=== PATIENT | male | born 2000 | race African-American/Black ===

== ENCOUNTER 2024-11-20 05:21 | Observation (INO) | payer BC, SELFPAY ==
[2024-11-19 21:25] VITALS: BP 151/76
[2024-11-19 22:40] VITALS: BP 129/78
[2024-11-19 22:45] VITALS: BMI 20.3
--- NOTE | 2024-11-19 22:57 | ED.GENMED ---
History of Present Illness
General
Chief Complaint: Chest Pain
Source: patient and family (Father)
Exam Limitations: none
Time Seen by Provider: 11/19/24 22:44
Nursing documentation reviewed up to this point in time: agreed with
History of Present Illness
History of Present Illness:
24-year-old male with past medical history of GERD/IBS who presents to the ER for evaluation of chest pain/epigastric pain. Patient reports that symptoms started a few days ago and they have been constant although the intensity waxes and wanes. He
reports pain in the subxiphoid/epigastrium that radiates across the lower part of the chest. Describes the pain as sharp. He says the pain seems to be worse when he lays on his side and worse when he stands up straight. Somewhat better when he
lays recumbent. He says initially he thought his symptoms were due to GERD as he has had issues with his GI tract in the past but not responding to typical kcil-lat-okdybkn reflux medications and with persistent symptoms came to the ER for
assessment. He says he has some very mild shortness of breath. He denies any significant amount of coughing. He denies any recent fever, chills, URI symptoms. He has not had any nausea or vomiting or diarrhea. He denies any swelling or pain in
the legs. He denies any other complaints. No known personal or family history of cardiac issues.
Review of Systems
Review of Systems
All Other Systems: ROS reviewed and negative except as documented in HPI and ROS
Constitutional: Denies fever or chills
EENT: Denies sore throat or runny nose
Respiratory: Reports trouble breathing; Denies cough
Cardiac: Reports chest pain; Denies palpitations
ABD/GI: Reports abdominal pain; Denies nausea, vomiting or diarrhea
: Denies flank pain
Musculoskeletal: Denies neck pain or back pain
Neurological: Denies dizzy or headache
Phy Exam
Physical Exam
Physical Exam:
General: Awake, alert, oriented x3; no acute distress
Head: Normocephalic, atraumatic
Eyes: Conjunctiva normal, sclera anicteric
Throat: Airway intact, handling secretions
Neck: Trachea midline, supple without meningismus
Lungs: Clear to auscultation bilaterally, no wheezing, rales, rhonchi
Heart: Regular rate and rhythm, no murmurs, gallops, or rubs
Abd: Soft, non distended, minimally tender in the epigastric
Neuro: No gross deficits
Skin: no rash
Extremities: No edema in extremities, equal pulses in all extremities
Scores
Heart Failure Risk
Heart Failure Risk Score: Not Applicable
Heart Score for Chest Pain Patients
STEMI patient?: No
History: Slightly or Non-Suspicious
ECG: Normal
Age: </= 45 years
Risk Factors: No Risk Factors
Troponin: </= Normal Limit
Heart Score for Chest Pain Patients: 0
Heart Score Risk: 2.5% MACE over next 6 weeks
Withdrawal Assessment of Alcohol
Withdrawal Assessment Completed?: Not applicable
Course
Orders/Labs/Results
Orders:
Orders
11/19/24 21:18
EKG [Electrocardiogram (*1)] Stat
Reason for Study: Chest Pain
EKG- Treatment ONCE
11/19/24 22:47
CR Chest - 2 Views Urgent
Comment:
Reason For Exam: chest pain
11/19/24 22:56
Mag Hydrox/Al Hydrox/Simeth [Maalox] 30 ml Phenobarb/Hyoscy/Atropine/Scop [] 10 ml Viscous Lidocaine 2% [Xylocaine Viscous Cup] 10 ml PO NOW
Pantoprazole [Protonix IV] 40 mg IV NOW STA
11/19/24 23:01
Mag Hydrox/Al Hydrox/Simeth [Maalox] 30 ml .ROUTE .STK-MED ONE
Phenobarb/Hyoscy/Atropine/Scop [] 10 ml .ROUTE .STK-MED ONE
11/19/24 23:02
Viscous Lidocaine 2% [Xylocaine Viscous Cup] 15 ml .ROUTE .STK-MED ONE
11/19/24 23:09
Complete Blood Count/With Diff Urgent
Comprehensive Metabolic Panel Urgent
D-Dimer Urgent
Lipase Urgent
Troponin I Urgent
11/20/24 00:00
US Abdomen Complete/Upper Urgent
Reason For Exam: upper abd pain
11/20/24 02:15
CT Abd/pelvis W Iv Cont Urgent
Comment:
Reason For Exam: upper abd pain
Abnormal Lab Results
11/19/24
23:09
MCH 26.6 L pg
(27.0-31.0)
MCHC 31.9 L g/dL
(33.0-37.0)
Absolute Monos (auto) 1.2 H 10^3/uL
(0.1-0.6)
Monocytes % 14.3 H %
(1.7-9.3)
BUN 8 L mg/dl
(9-20)
AST 198 H U/L
(17-59)
ALT 304 H U/L
(0-50)
Alkaline Phosphatase 138 H U/L
(38-126)
11/19/24 23:09
11/19/24 23:09
Vital Signs
Initial and Last Documented VS:
Initial Vital Signs
Temp Pulse Resp BP Pulse Ox
37.2 C 92 18 151/76 100
11/19/24 21:25 11/19/24 21:25 11/19/24 21:25 11/19/24 21:25 11/19/24 21:25
Last Documented Vital Signs
Temp Pulse Resp BP Pulse Ox
37.2 C 79 18 112/58 100
11/19/24 21:25 11/19/24 23:30 11/19/24 23:30 11/20/24 02:00 11/20/24 02:15
MDM/Problems Addressed
Differential Diagnosis Includes:
Pericarditis, pneumothorax, pleurisy, pneumonia, GERD/esophagitis/PUD, cholelithiasis/cholecystitis, pancreatitis; very low clinical suspicion for ACS, PE, aortic dissection based on full clinical picture
MDM/Problems Addressed:
24-year-old male presents for evaluation of subxiphoid/epigastric pain for the past few days waxing waning intensity. He does have known history of GERD/gastritis had endoscopy in 2022. Hypertensive in triage normal on my assessment rest of vitals
normal. Physical exam as above. EKG shows no STEMI. Will check labs including a CBC and a CMP, troponin, lipase. Will check D-dimer. Will check chest x-ray. Check upper abdominal ultrasound. Treat with green grabber and Protonix. Reassess
after the above.
Labs reviewed: CBC unremarkable, CMP shows transaminitis normal T. bili. Normal lipase. His troponin is undetectable, D-dimer negative. Chest x-ray no acute disease. Upper abdominal ultrasound read by [facility] radiology no acute pathology.
Clinical reassessment patient still having pain and with abnormal LFTs we will follow-up with CT of the abdomen pelvis.
CT called back by radiology: Patient does have dilated bile duct although no gallstones noted; there is also question of enteritis. No other acute pathology noted. Given abnormal LFTs with dilated bile duct and continued pain we will plan to admit
for continued evaluation, consideration for MRCP. Case discussed with hospitalist.
*Radiology
Radiology exam reviewed: preliminary read by ED provider and radiology read reviewed
*Pulse Oximetry
Patient hypoxic: no
*EKG
Interpreted by ED Provider?: Yes
Heart Rate: 79
Rate: normal
Rhythm: sinus
[place]: normal axis
Interval: normal interval
QRS Pattern: normal QRS
Ischemia: no ischemia
*Critical Care Note
Total Time (30-74mins, 75-104mins- exclusive of procedures): Not Applicable
Data Reviewed
Source: patient and family
Patient Management
Discussion with other providers: Hospitalist (Discussed with hospitalist)
Escalation/DeEscalation of care consider admission/obs:
Admission indicated
ED Attending Note
-
Portions of this chart may have been created with voice recognition software.� Occasional wrong word or��sound alike� substitutions may have occurred due to the inherent limitations of voice recognition software.
Discharge Plan
Departure
Patient Disposition: Admit
Date of Disposition: 11/20/24
Time of Disposition: 04:00
Admit to doctor: Maria Isabel
Presentation/result/management discussed w/ accepting MD/DO: Hospitalist
Discharge Problem:
Epigastric pain, Abnormal LFTs
Referrals:
Scott Lanza MD [Family Provider] -
Interventions
Interventions:
*Risk Screen - Suicide Last Done: 11/19/24 21:25
*General Assessment Last Done: 11/19/24 21:25
*Neglect/Abuse Screening Last Done: 11/19/24 21:25
ED- Fall Risk Assessment Last Done: 11/19/24 22:48
*ED COVID-19 Vaccine History Last Done: 11/19/24 22:48
ED- Cardiac Assessment Last Done: 11/19/24 22:48
Discharge Date and Time
Print Language: MALAY
[2024-11-19 23:00] VITALS: BP 129/81
[2024-11-19] MEDS: MAALOX 50 PO (23:11)
[2024-11-19] MEDS: PROTONIX IV 40 MG IV (23:11)
[2024-11-19 23:25] LABS: % Basophils 0.4 % (0-2); % Eosinophils 0.8 % (0-6); % Immature Granulocytes 0.2 % (0-0.5); % Lymphocytes 22.8 % (20.5-51.1); % Monocytes 14.3 % (1.7-9.3); % Neutrophils 61.5 % (42.2-75.2); Absolute Eosinophils 0.1 10^3/uL (0-0.7); Absolute Lymphocytes 1.9 10^3/uL (1.2-3.4); Absolute Monocytes 1.2 10^3/uL (0.1-0.6); Absolute Neutrophils 5.1 10^3/uL (1.4-6.5); Hematocrit 45.4 % (39.0-52.0); Hemoglobin 14.5 g/dL (13.0-18.0); Mean Corp Hgb Conc. 31.9 g/dL (33.0-37.0); Mean Corpuscular Hgb 26.6 pg (27.0-31.0); Mean Corpuscular Volume 83.3 fL (80.0-94.0); Mean Platelet Volume 10.3 fL (7.4-10.4); Nucleated Red Blood Cells % 0.2 % (-); Platelet Count 283 10^3/uL (130-400); Red Blood Cell Count 5.45 10^6/uL (4.70-6.10); Red Cell Dist. Width 13.9 % (11.5-14.5); White Blood Cell Count 8.3 10^3/uL (4.8-10.8)
[2024-11-19 23:40] LABS: D-Dimer < 0.27 ug/mlFEU (0.00-0.50)
[2024-11-19 23:48] LABS: ALT (SGPT) 304 U/L (0-50); AST (SGOT) 198 U/L (17-59); Albumin 4.4 g/dl (3.5-5.0); Alkaline Phosphatase 138 U/L (38-126); Blood Urea Nitrogen 8 mg/dl (9-20); Calcium 9.5 mg/dl (8.4-10.2); Carbon Dioxide 28 mmol/L (22-30); Chloride 100 mmol/L (98-107); Estimated Creatinine Clearance > 125 ml/min; Glucose 85 mg/dl (70-99); Lipase 40 U/L (23-300); Potassium 4.8 mmol/L (3.5-5.1); Sodium 138 mmol/L (135-145); Total Bilirubin 0.6 mg/dl (0.2-1.3); Total Protein 7.7 g/dl (6.3-8.2); eGFR > 60.00
[2024-11-19 23:53] LABS: Troponin I < 0.012 ng/ml
[2024-11-20 00:46] VITALS: BP 129/69
[2024-11-20 02:00] VITALS: BP 112/58
[2024-11-20] MEDS: DILAUDID 0.5 MG IV (04:30)
[2024-11-20 04:37] LABS: Urine Albumin 2+ (Neg - Trace); Urine Bilirubin Negative (Negative); Urine Character Clear (Clear); Urine Color Yellow; Urine Glucose Negative (Negative); Urine Ketone 2+ (Negative); Urine Leukocyte Negative (Negative); Urine Nitrite Negative (Negative); Urine Occult Blood Negative (Negative); Urine Specific Gravity 1.015 (<1.030); Urine Urobilinogen Negative (Neg - 1+)
[2024-11-20 04:46] LABS: Urine Mucus Moderate
[2024-11-20 04:47] LABS: Urine Red Blood Cell 0-2 /HPF (0-2); Urine White Cell 0-2 /HPF (0-5)
--- NOTE | 2024-11-20 04:54 | HPS.HSE ---
Family Physician
-
Family Physician: Scott Lanza MD
Chief Complaint
-
Epigastric pain
History of Present Illness
This is a 24-year-old with no clear significant past medical history presenting to the emergency department with a 1 day history of epigastric pain.
Patient tells me that he has had history of abdominal pain since May of last year. At the time the diagnosis was unclear but he had extensive studies. He initially was diagnosed with E. coli and a parasite diarrhea and treated nitazoxanide for
3 days. He then had an EGD that ruled out a peptic ulcer and a colonoscopy that was inconclusive/negative for IBD. He was diagnosed with possible IBS. He too a course of medications (linaclotide?) and states that the symptoms resolved. He
reports having a bout of viral enteritis in september. He has otherwise been in normal health until 1 week ago when he had epigastric pain that he described as sharp/burning and radiating to his chest. This resolved. He now has one day history of
similar epigastric pain today without nausea, vomiting or diarrhea. Pain was when laying down. Denies any melena. Denies etoh use. Denies any medications including acetaminophen or nsaids. He reports occasional use of creatine supplement.
Denies dysuria. Denies fevers or chills. Family history of type I diabetes in father, IBS and h/o breast Ca in mother.
In the emergency department he was afebrile, blood pressure was 112/58 with a pulse of 82. ECG shows a normal sinus rhythm at 79 with negative troponin. CBC was completely unremarkable. Electrolytes BUN/creatinine were also all normal. LFTs
showed elevations in AST to 198, ALT to 300 and alk phos to 138. Lipase was normal. Right upper on ultrasound shows no gallstones or sonographic Becerra sign. The gallbladder and visualized biliary system are unremarkable. CTAP reported as having
dilated bile ducts but read is still pending at this time.
Medical History
Past Medical History
Past Medical History: Reports Other (IBS)
Past Surgical History: Reports None
Social History
Tobacco: Non-smoker
Alcohol: Occasional
Drug: None
Personal: Single
Living: With Family
Family History
Family History: Not pertinent
Allergies / Home Medications
Allergies reflects when Allergies were last updated in [facility].
Home Medications with original date entered in [facility]
Allergy/Medication List:
Allergies
Allergy/AdvReac Type Severity Reaction Status Date / Time
No Known Allergies Allergy Unverified 11/19/24 21:25
No Home Medications
Review of Systems
-
Constitutional: Reports No Symptoms
EENT: Reports No Symptoms
Respiratory: Reports No Symptoms
Abdomen/GI: Reports Abdominal Pain
: Reports No Symptoms
Musculoskeletal: Reports No Symptoms
Skin: Reports No Symptoms
Neurological: Reports No Symptoms
Endocrine: Reports No Symptoms
Hematologic/Lymphatic: Reports No Symptoms
Psych: Reports No Symptoms
Physical Exam
Vital Signs
Vital Signs
Temp Pulse Resp BP Pulse Ox
99.4 F 82 20 112/58 98
11/20/24 04:16 11/20/24 04:16 11/20/24 04:16 11/20/24 02:00 11/20/24 04:16
Physical Exam
General: Well Developed, Well Nourished and Pain
HEENT: NormoCephalic, Anicteric, Moist mucous membranes and Atraumatic
Respiratory: Clear
Cardiac: S1/S2 and Regular Rhythm
Breast: Deferred by me
GI: Soft, Non Distended, Normal Bowel Sounds and Tender
Rectal: Brown
Genito-urinary: No costovertebral tender
Musculoskeletal: No Clubbing, No Cyanosis and No Edema
Skin: Warm
Neuro: AO x 3 and No Motor Deficits
Hematologic/Lymphatic: No Lymphadenopathy
Psych: Calm
Laboratory Results
-
11/19/24 23:09
11/19/24 23:09
Laboratory Results
Total Bilirubin 0.6 mg/dl (0.2-1.3) 11/19/24 23:09
AST 198 U/L (17-59) H 11/19/24 23:09
ALT 304 U/L (0-50) H 11/19/24 23:09
Alkaline Phosphatase 138 U/L (38-126) H 11/19/24 23:09
Troponin I < 0.012 ng/ml 11/19/24 23:
Lipase 40 U/L (23-300) 11/19/24 23:09
Data Reviewed
-
CT Scan: Report Reviewed by me
Ultrasound: Report Reviewed by me
Medical Tests (Nuc Med, Echo, EKG etc): Image Personally Visualized and interpreted
Lab Data: Labs Reviewed by me
Old Records: Reviewed
Impression/Plan
-
IMPRESSION:
24 y.o with history of abdominal pain, diarrhea in the past presenting with epigastric pain radiating to the chest. LFTS elevated AST 198, ALT 300, AP 138. Lipase normal. No etoh use. No gall stones in GB. No acetaminophen use. Some dilated
bile ducts on CT (report pending).
PLAN:
Abdominal pain - Etiology on clear, with LFT abnormalities and report of biliary ductal dilation on CT suspect transient gall stones but cannot rule out other ductal obstruction. Possible acute viral hepatitis. Patient may also have some
gastritis/duodenitis but has no vomiting.
- admit to med surg
- trend lfts, check inflammatory panel
- check acute hepatitis panel
- mrcp in am
- clear liquid diet for now
- pain control and antiemetics
- GI consult
DVT PPX - SCDs
Code status - Full Code
--- NOTE | 2024-11-20 09:32 | W.PN.HOSP.TC ---
Addendum entered and electronically signed by Brandon Serrano MD 11/20/24 21:53:
Attending Addendum:
I saw and evaluated the patient. I reviewed the resident�s note and agree with findings and plan as documented in the resident�s note. Sub: abd pain resolved no diarrhea. no N/V jose miguel clears. Full 12 point ROS reviewed and negative except as
documented Exam: Vitals reviewed in chart GEN-NAD heart RRR lungs clear abd soft LE no edema
#GERD
-Continue 40 mg Protonix Once daily as OP
-No signs of Upper GI bleeding
#Abdominal pain due enteritis vs Aggravation of IBS
-Abd CT: Bowel: No significant gastric or small bowel distention. Mild prominence of several loops of small bowel-Mild enteritis?
-Abd US and MRI/MRCP: No evidence for choledocholithiasis or bile duct dilatation
-Unclear diagnosis of IBS in 2022
-Order Calprotectin to differentiate IBD and IBS
-Stool Culture was ordered+( Cryptosporidium and Giardia )
-check HIV-negative
#Transaminitis due infectious vs supplements or substances
-Hep panel- all neg except hep a ab
-resolving
-Urine tox positive for barbiturate
-DC to supplements were recommended
-Follow up AST, ALT as OP
-No evidence of choledocholithiasis on imaging
#Diarrhea
-resolved f/u as OP with GI
Time spent coordinating care, DC planning, review of DC plan of care with resident, transition of care, review of records, med rec/scripts sent electronically, consults, notes, d/w consultants, nursing, family, and CM�33 mins
Original Note:
Today's Communication/Plan
-
Hepatitis panel, urine drug screen, HIV
GI consult
Assessment / Plan
Assessment / Plan
24-year-old male with history of abdominal pain, diarrhea in the past presented with epigastric pain radiating to the chest.
# Abdominal/epigastric pain ; unclear etiology
# Transaminitis
#GERD
--AFVSS
--EKG unremarkable; tropes negative.
--D-dimer WNL
--BUN/creatinine, lipase WNL
--Abdominal ultrasound shows no gallstones or sonographic Becerra sign
--CXR negative
-- CT: IMPRESSION: 1. Mild prominence of several loops of small bowel, likely physiologic. Mild enteritis should be excluded clinically.
2. No evidence of intestinal obstruction, appendicitis, nephrolithiasis, hydronephrosis, cholecystitis, or abscess formation.
--Clear liquid diet for now
--Check acute hepatitis panel
--Check urine drug screen
--MRCP ordered in the ER : unremarkable and no evidence of choledocholithiasis or bile duct dilation.
--GI consult pending
--Check HIV
--Continue daily Pepcid 20 mg
--Tylenol as needed for pain
--Zofran as needed for nausea
Full code
Clear diet
Anticipated Discharge: Within 24 hours
Subjective/Interval History
-
Date of Service: November 20, 2024
Reports mild abdominal/epigastric pain. AFVSS
Objective Data
-
Labs:
Laboratory Results
11/19/24
23:09
WBC 8.3
Hgb 14.5
Hct 45.4
Plt Count 283
Sodium 138
Potassium 4.8
Chloride 100
Carbon Dioxide 28
BUN 8 L
Creatinine 0.8
Glucose 85
Calcium 9.5
Total Bilirubin 0.6
AST 198 H
ALT 304 H
Alkaline Phosphatase 138 H
Vital Signs:
Vital Signs
Temp Pulse Resp BP Pulse Ox
99.4 F 82 20 112/58 98
11/20/24 04:16 11/20/24 04:16 11/20/24 04:16 11/20/24 02:00 11/20/24 04:16
Review of Systems
-
History Source: Patient
Constitutional: Reports No Symptoms
Respiratory: Reports No Symptoms
Cardiac: Reports No Symptoms
Abdomen/GI: Reports Abdominal Pain (Mild epigastric pain); Denies Nausea or Vomiting
Genitourinary: Reports No Symptoms
Musculoskeletal: Reports No Symptoms
Neuro: Reports No Symptoms
Physical Exam
-
General: Well Developed, Well Nourished and No Apparent Distress
HEENT: Normocephalic and Atraumatic
Respiratory: Clear to Auscultation and Non Labored Respirations
Cardiac: Regular Rhythm and S1/S2
GI: Soft, Nontender, Nondistended and Normal Bowel Sounds
Musculoskeletal: No Clubbing, No Cyanosis and No Edema
Neuro: Awake, Alert and Oriented
Psych: Calm
Data Reviewed
-
CT Scan: Report Reviewed by me
Ultrasound: Report Reviewed by me
MRI: Report Reviewed by me
Labs: Labs Reviewed by me, Discussed with Physician and Discussed with Patient
--- NOTE | 2024-11-20 10:33 | CON.GI ---
Addendum entered and electronically signed by Mason Brar MD 11/20/24 16:57:
I personally performed a history and physical exam of the patient and discussed management with the resident. I reviewed the resident's note and agree with the documented findings and plan of care HPI/CC. 24-year-old male with chronic GI issues who
follows with Dr. Giang at [facility] presenting with epigastric pain. This pain started Saturday after eating [employer] night before. Pain was worse with lying down, improved with bowel movement. He has heartburn in the past but this pain felt
different as it sat his epigastric area and described it as a winded painful feeling. He denies any NSAIDs. Does take supplements. He has history of diarrhea likely IBS. His IBS had improved Spring 2023 but then in May 2024 he had crypto and
E. coli. He did well until September 2024 when he had 1-1/2 days of diarrhea and vomiting and self diagnosed norovirus. He started having diarrhea again yesterday 4 bowel movements a day with no urgency, no incontinence, positive nocturnal bowel
movement. He tried Metamucil. Denies antibiotics, travel, sick contacts. He is underwent an endoscopy and colonoscopy with his outpatient GI doctor. Denies NSAIDs, marijuana. Here he has undergone a CT, ultrasound, MRI with only significant
finding being questionable enteritis.
Seems to have a likely functional component however his LFTs are elevated with an AST of 198, ALT of 304, alk phos 138. Could have an infectious etiology for the pain, diarrhea, abnormal LFTs. Repeat today had improved. Viral hepatitis workup was
done and was negative. HIV also ordered and is pending. Additionally recommend stool studies, repeat celiac blood work. Possible plan for discharge today per primary team. If so, would recommend he tolerates diet, repeat LFTs 1 week outpatient,
start Protonix, follow-up with his outpatient GI. If patient does not improve and has ongoing epigastric pain, we can consider upper endoscopy to evaluate for peptic ulcer disease although my suspicion is low. His hemoglobin and BUN are normal,
He takes no NSAIDs, previously had a normal upper endoscopy.
Original Note:
Consultation
-
Date/Time Consultation Requested: 11/20/24
Date/Time Consultation Performed: 11/20/24
Requesting Provider: Tanvir Nicolas MD
Performing Provider: Morenita Price MD
Reason for Consultation: Abdominal pain
Medical History
Chief Complaint / HPI
Chief Complaint: epigastric pain
History of Present Illness:
The patient is a 24 year old male with a possible medical history of IBS who presented to ER complaining from 6 days duration of epigastric pain. The patient reported his current pain started about 6 days ago on Saturday midnight following eating some
chicken and beef at [employer]. He experienced heartburn and pain on his epigastric area and considered he had acid reflux and took some over the counter medication. On Saturday he took Pepcid and his pain did not relieve with it and
gradually increased during the week. Reports his worst pain was morning with a severe headache but denies any associated dysphagia, hematemesis, nausea, vomiting, and dark colored stools at any time with his epigastric pain.But he reported
he had diarrhea on . Off note, He reports he had 2 episodes of diarrhea in May 2024 and in September 2024 and was diagnosed with E coli and Cryptosporidium for which he was prescribed nitazoxanide for 2 times but he did not take the
second prescription due his improving symptoms, did not have a follow up by his GI in [place]. The patient reports he started to have frequent and soft bowel movements (6-7 times daily) in spring and he visited a GI physician at [place].
He underwent an Endoscopy in the beginning of 2022 and had a colonoscopy in 2023. Per patient report, Celiac and crohn`s disease were ruled out at that time. He was given omeprazole for 3-4 months for having mild gastritis on EGD and recommended
to avoid glutens. Since 2021, the patient has frequent bowel movements 3-4 times daily and sometimes diarrhea. Denies any medications( acetaminophen or NSAI), reports social alcohol drinking occasionally , denies tobacco using , denies marijuana
taking.
Past Medical History
Past Medical History: Other (IBS? Had a GI physician at [place] ( Last name Gunner))
Past Surgical History: None
Social History
Tobacco: Non-Smoker
Alcohol: Occasional
Drug: None
Personal: Single
Living: With Family
Family History
Family History: Other (Father: IBS on treatment with steroids, type I diabetes, mother breast Ca)
Allergies / Home Medications
Allergy/AdvReac Type Severity Reaction Status Date / Time
No Known Allergies Allergy Unverified 11/19/24 21:25
�Medication �Instructions �Recorded
Creatinine 1 tab PO DAILY 11/20/24
Review of Systems
-
History Source: Patient
EENT: Reports No Symptoms
Respiratory: Reports No Symptoms
Cardiac: Reports No Symptoms
Abdomen/GI: Reports Abdominal Pain
: Reports No Symptoms
Musculoskeletal: Reports No Symptoms
Skin: Reports No Symptoms
Neurological: Reports No Symptoms
Endocrine: Reports No Symptoms
Vital Signs
Temp Pulse Resp BP Pulse Ox
99.4 F 82 20 112/58 98
11/20/24 04:16 11/20/24 04:16 11/20/24 04:16 11/20/24 02:00 11/20/24 04:16
Physical Exam
Exam
General: Well Developed and Pain
HEENT: Normocephalic, Anicteric and Moist Mucous Membranes
Respiratory: Clear
Cardiac: S1/S2 and Regular Rhythm
Breast: Deferred by me
GI: Soft, Non Tender, Non Distended and Other (Pain on epigastric area to palpation )
Musculoskeletal: No Clubbing and No Edema
Skin: Warm
Neuro: Awake, Alert, Oriented and AO x 3
Psych: Calm
Results
WBC 8.3 10^3/uL (4.8-10.8) 11/19/24 23:09
Hgb 14.5 g/dL (13.0-18.0) 11/19/24 23:09
Hct 45.4 % (39.0-52.0) 11/19/24 23:09
MCV 83.3 fL (80.0-94.0) 11/19/24 23:09
Plt Count 283 10^3/uL (130-400) 11/19/24 23:09
Absolute Neuts (auto) 5.1 10^3/uL (1.4-6.5) 11/19/24 23:09
Sodium 138 mmol/L (135-145) 11/19/24 23:09
Potassium 4.8 mmol/L (3.5-5.1) 11/19/24 23:09
Chloride 100 mmol/L (98-107) 11/19/24 23:09
Carbon Dioxide 28 mmol/L (22-30) 11/19/24 23:09
BUN 8 mg/dl (9-20) L 11/19/24 23:09
Creatinine 0.8 mg/dL (0.7-1.3) 11/19/24 23:09
Calcium 9.5 mg/dl (8.4-10.2) 11/19/24 23:09
Total Bilirubin 0.6 mg/dl (0.2-1.3) 11/19/24 23:09
AST 198 U/L (17-59) H 11/19/24 23:09
ALT 304 U/L (0-50) H 11/19/24 23:09
Alkaline Phosphatase 138 U/L (38-126) H 11/19/24 23:09
Lipase 40 U/L (23-300) 11/19/24 23:09
Diagnostic Image Results:
ABD US :
IMPRESSION:
1. No evidence of cholelithiasis, acute cholecystitis, or biliary ductal dilation.
2. No sonographic abnormalities demonstrated.
Findings are in agreement with the after [facility] radiology report.
ABD CT 11/20/24
IMPRESSION:
1. Mild prominence of several loops of small bowel, likely physiologic. Mild enteritis should be excluded clinically.
2. No evidence of intestinal obstruction, appendicitis, nephrolithiasis, hydronephrosis, cholecystitis, or abscess formation.
Findings are in agreement with the after [facility] radi[facility] report.
MRI/MRCP 11/20/24
IMPRESSION:
No MRCP evidence for choledocholithiasis or bile duct dilatation.
IMPRESSION:
No MRCP evidence for choledocholithiasis or bile duct dilatation.
Prior GI Procedures: Per patient report, He had EGD in 2022 and colonoscopy in 2023 and was found suspicious for IBS, ruled out Chron`s disease. He was found having mild gastritis and took PPI for 3-4 months.
EGD:
Colonoscopy:
Assessment / Plan
-
Assessment
Impression:Ms Cleveland is a 24 year old with a unclear history of IBS who presented to ER for an evaluation of having gradually increased 6 days duration of epigastric pain and following having diarrhea since . He has a PMH of possible IBS for
which he had an EGD and colonoscopy by his GI in [place]. He denies hematemesis, vomiting and dark colored stools. At admission he was obtained Abd/Pelvis CT which was suspicious for mild enteritis. His Abd US and MRI/MRCP results were not
significant for any biliary duct problem. His CBC was completely unremarkable. Electrolytes BUN/creatinine were also in normal levels. LFTs showed elevations in AST to 198, ALT to 300 and ALP to 138. Lipase was resulted normal. His urine tox
positive for barbiturate. The patient denies using any substance taking and but reported hehas taking some supplements (clear protein and creatinine) to build muscles.
Problem List
GERD
Abdominal pain due possible Gastroenteritis vs Aggravation of IBS
Transaminitis
Diarrhea
#GERD
-Continue 40 mg Protonix Once daily
-No signs of Upper GI bleeding
#Abdominal pain due possible Gastroenteritis vs Aggravation of IBS
-Abd CT: Bowel: No significant gastric or small bowel distention. Mild prominence of several loops of small bowel-Mild enteritis?
-His Abd US and MRI/MRCP: No evidence for choledocholithiasis or bile duct dilatation
-Unclear diagnosis of IBS in 2022
-Order Calprotectin to differentiate IBD and IBS
-Stool Culture was ordered+( Cryptosporidium and Giardia )
#Transaminitis due infectious vs supplements or substances
-Hep panel was ordered
-Urine tox positive for barbiturate
-DC to supplements were recommended
-Follow up AST, ALT
-No evidence of choledocholithiasis on imaging
#Diarrhea
-Follow up stool studies
-
-
Thank you for consultation and allowing me to participate in the patient's care. Please call the [facility] GI physician during the after hours with any questions or concerns.
[2024-11-20] MEDS: PEPCID 20 MG PO (10:36)
[2024-11-20 10:43] VITALS: BP 121/60
--- NOTE | 2024-11-20 11:55 | PTCARENOTE ---
pt aaox3. states 3/10 pain in abd does not want pain med at this time. pt went to mri. room air breath sounds clear. abd tender to touch.
[2024-11-20 12:57] LABS: ALT (SGPT) 276 U/L (0-50); AST (SGOT) 169 U/L (17-59); Albumin 4.2 g/dl (3.5-5.0); Alkaline Phosphatase 152 U/L (38-126); Direct Bilirubin 0.2 mg/dl (0.0-0.4); Total Bilirubin 0.9 mg/dl (0.2-1.3); Total Protein 7.4 g/dl (6.3-8.2)
[2024-11-20 13:25] LABS: Amphetamines Negative (Negative); Barbiturates Positive (Negative); Benzodiazepines Negative (Negative); Buprenorphine Negative (Negative); Cocaine Negative (Negative); Marijuana Negative (Negative); Methadone Negative (Negative); Methamphetamines Negative (Negative); Opiates Negative (Negative); Phencyclidine Negative (Negative); Tricyclic Antidepressants Negative (Negative)
[2024-11-20 13:56] LABS: Hepatitis B Surface Antigen Negative (Negative)
[2024-11-20 14:13] LABS: Hepatitis A Antibody, Total Positive (Negative); Hepatitis B Core Ab, Total Negative (Negative); Hepatitis B Surface Antibody Negative; Hepatitis C Antibody Negative (Negative)
[2024-11-20 16:05] LABS: Hepatitis A IgM Antibody Negative (Negative)
[2024-11-20 17:54] LABS: HIV Combo Negative (Negative)
--- NOTE | 2024-11-20 18:29 | W.PN.UPDATE ---
Update Note
Progress Note Update
Plan discussed with GI. Hepatitis panel negative, HIV negative, C. difficile negative, dose Pyridium/Giardia negative, norovirus negative. Okay to discharge on Protonix if patient tolerates food. He was able to tolerate dinner and offers no
complaints. Lab prescription to repeat LFTs in 1 week provided to the patient and instructed him to follow-up with GI and his PCP within 1 week.
--- NOTE | 2024-11-20 18:39 | W.DCSUMMARY ---
Addendum entered and electronically signed by Brandon Serrano MD 11/24/24 15:27:
Read, reviewed and agree
Brennon Serrano MD
Original Note:
Documented by User: Charles Li MD, Resident 11/24/24 06:52
Discharge Summary
Discharge Data
Date of Admission: 11/20/24
Date of Discharge: 11/20/24
-
Pending Results: Yes (Salmonella/yellow culture, Campylobacter culture, Shiga toxin test)
Hospital Course
Discharging Physician : Charles Li MD ; Brandon Swanson MD
Disposition : Home
Primary care physician : Scott Lanza MD
Principal Discharge diagnosis : Abdominal/epigastric pain, Transaminitis
Chronic Discharge diagnosis : GERD
Hospital Course : 24-year-old with past medical history of GERD presented to the emergency department with a 2-3 day history of epigastric pain.
Patient reported history of abdominal pain since May of 2024. At that time the diagnosis was unclear but he had extensive workup. He initially was diagnosed with E. coli and a parasite diarrhea and treated nitazoxanide for 3 days. He then had
an EGD that ruled out a peptic ulcer and a colonoscopy that was inconclusive/negative for IBD. He was diagnosed with possible IBS. He was started on dicyclomine and reportedly symptoms resolved. He reports having a episode of viral enteritis in
september. He described pain as sharp/burning and radiating to his chest without nausea, vomiting or diarrhea. Pain increases with laying down. Denied any dysuria, melena, fever or chills. Denied Alcohol use. Denied use of any medications
including acetaminophen or Nsaids. He reported occasional use of creatine supplement.
In the emergency department he was afebrile, blood pressure was 112/58 with a pulse of 82. ECG showed a normal sinus rhythm at 79 with negative troponin. CBC was completely unremarkable. Electrolytes BUN/creatinine were also all normal. LFTs
showed elevations in AST to 198, ALT to 300 and alk phos to 138. Lipase was normal. Abdominal ultrasound showed no gallstones or sonographic Becerra sign. The gallbladder and visualized biliary system are unremarkable. CTAP as below. MRCP was
also ordered in the ER; report below.
He was kept for observation while GI was consulted. He was kept on clear liquid initially which was later transitioned to low residue before discharge.
Hepatitis panel was all neg except total hep a ab. HIV was negative.
Urine tox was positive for barbiturate
Recommended to discontinue use of supplements.
Repeat Lfts were ordered which showed improvement. He was instructed to repeat LFts in 1 week and fu with pcp.
Given his recent diarrhea, GI ordered Stool studies which were grossly negative including c.diff, norovirus, cryptosporadium/giardia.
He was started on protonix 20mg PO and script was sent upon discharge.
He was discharged in a medically stable condition after he tolerated the diet without any abdominal pain. He was also instructed to fu with Dr. Giang at [place]( his GI). He agreed with the plan.
Important imaging findings : Chest x-ray:FINDINGS:
The cardiomediastinal silhouette is within normal limits.
The lungs are clear, without evidence of lobar pneumonia, pleural effusion, pneumothorax, or decompensated congestive heart failure.
Visualized osseous structures are within normal limits.
No radiographic evidence of free intraperitoneal air
US Abdomen Complete:
1. No evidence of cholelithiasis, acute cholecystitis, or biliary ductal dilation.
2. No sonographic abnormalities demonstrated.
CT Abd/pelvis W Iv Cont:
1. Mild prominence of several loops of small bowel, likely physiologic. Mild enteritis should be excluded clinically.
2. No evidence of intestinal obstruction, appendicitis, nephrolithiasis, hydronephrosis, cholecystitis, or abscess formation.
MR Mrcp Without:No MRCP evidence for choledocholithiasis or bile duct dilatation
Procedure findings : EKG:NORMAL SINUS RHYTHM WITH SINUS ARRHYTHMIA
NORMAL ECG
Discharge Plan
-
Patient Disposition: Home (Routine Discharge)
Discharge Diagnosis/Procedures: Abdominal/epigastric pain, Transaminitis, GERD
Condition: Good
Diet: No restrictions
Activity: No restrictions
Driving Restrictions: As prior to admission
Blood Work: LFTs in 1 week outpatient and report to pcp. Lab script given to the patient.
Others Tests: Some stool studies pending; follow up with pcp to review the results.
Referrals:
Scott Lanza MD [Family Provider] - in less than 1 week
Additional Discharge Medication Instructions: Take Protonix 20 mg tablet every day: Follow-up with GI Dr. Giang at [facility] for further recommendations.
Discontinue creatinine supplement
Avoid NSAIDs
Prescriptions:
New
pantoprazole [Protonix] 20 mg tablet,delayed release (DR/EC)
20 mg PO DAILY Qty: 30 0RF
Discontinued
Creatinine
1 tab PO DAILY
Discharge Orders:
Discharge Patient (As Directed); Ordered 11/20/24
Ordered By: Charles Li
Discharge Date and Time
Discharge Date/Time: 11/20/24 19:04
Print Language: UGANDAN

Documented by User: Brandon Serrano MD 11/24/24 15:24
Discharge Summary
Discharge Data
Date of Admission: 11/20/24
Date of Discharge: 11/24/24
Discharge Plan
-
Patient Disposition: Home (Routine Discharge)
Discharge Diagnosis/Procedures: Abdominal/epigastric pain, Transaminitis, GERD
Condition: Good
Diet: No restrictions
Activity: No restrictions
Driving Restrictions: As prior to admission
Blood Work: LFTs in 1 week outpatient and report to pcp. Lab script given to the patient.
Others Tests: Some stool studies pending; follow up with pcp to review the results.
Referrals:
Scott Lanza MD [Family Provider] - in less than 1 week
Additional Discharge Medication Instructions: Take Protonix 20 mg tablet every day: Follow-up with GI Dr. Giang at [facility] for further recommendations.
Discontinue creatinine supplement
Avoid NSAIDs
Prescriptions:
New
pantoprazole [Protonix] 20 mg tablet,delayed release (DR/EC)
20 mg PO DAILY Qty: 30 0RF
Discontinued
Creatinine
1 tab PO DAILY
Discharge Orders:
Discharge Patient (As Directed); Ordered 11/20/24
Ordered By: Charles Li
Discharge Date and Time
Discharge Date/Time: 11/20/24 19:04
Print Language: UGANDAN
[2024-11-20 19:02] VITALS: BP 96/85
== END 2024-11-20 19:04 | disposition home or self-care (01) ==
LOC: ED 05:21
PROVIDERS: ADMITTING PHYSICIAN Internal Medicine; ATTENDING PHYSICIAN Family Medicine; CONSULT PHYSICIAN Internal Medicine Gastroenterology; EMERGENCY PHYSICIAN Emergency Medicine; FAMILY PHYSICIAN Internal Medicine
DX: R10.13 Epigastric pain (principal); R10.9 Unspecified abdominal pain; R07.9 Chest pain, unspecified; K21.9 Gastro-esophageal reflux disease without esophagitis; R19.7 Diarrhea, unspecified; R74.01 Elevation of levels of liver transaminase levels
CPT/HCPCS: 71046; 74177; 74181; 76700; 80053; 80076; 80306; 81003; 81015; 83690; 84484; 85025; 85379; 86704; 86706; 86708; 86709; 86803; 87045; 87046; 87324; 87328; 87329; 87340; 87389; 87427; 87449; 87798; 93005; 96374; 96375; 99285; G0378; Q9967